=== PATIENT | female | born 1980 | race Caucasian/White ===

== ENCOUNTER 2016-08-20 21:59 | Inpatient (IN) | payer OTHER ==
[2016-08-20 22:43] LABS: ROM Internal QC QC Line Present
[2016-08-20] MEDS ORDERED: diPHENhydraMINE PO* 25 MG PO ONE (23:17)
[2016-08-21] MEDS ORDERED: OBEPIDURAL* 250 ML ONE (14:46)
[2016-08-21 14:47] LABS: Hematocrit 33 % (35-47); Hemoglobin 10.4 g/dl (12.0-16.0); Mean Corpuscular HGB Conc 32 g/dl (31-36); Mean Corpuscular Hemoglobin 24 pg (27-31); Mean Corpuscular Volume 76 fL (80-97); Mean Platelet Volume 9 um3 (7.4-10.4); Red Blood Count 4.29 10^6/ul (4.0-5.4); Red Cell Distribution Width 16 % (10.5-15); White Blood Count 21.7 10^3/ul (3.5-10.8)
[2016-08-21] MEDS ORDERED: Oxytocin in LR* 20 UNITS/1,000 ML BAG IVPB SCH (15:00)
[2016-08-21] MEDS ORDERED: Famotidine TAB* 20 MG PO PRN (15:07)
[2016-08-21] MEDS ORDERED: Phenylephrine IV* 40 MCG/ML 10 ML SYRINGE IV PUSH PRN ×8 (15:07→23:14)
[2016-08-21] MEDS ORDERED: Sodium Citrate/Citric Acid* 15 ML UDC PO PRN (15:07)
[2016-08-21] MEDS ORDERED: OBEPIDURAL* 250 ML EPIDURAL SCH ×3 (16:00→23:45)
[2016-08-21] MEDS ORDERED: fentaNYL* 50 MCG/ML 2 ML VIAL (100 MCG VIAL) ONE ×2 (20:20→22:37)
[2016-08-21] MEDS ORDERED: EPHEDrine (Pressors)* 50 MG/ML VIAL IV PUSH PRN ×4 (20:57→23:14)
[2016-08-21] MEDS ORDERED: Hetastarch in NS* 200 ML IV PRN (20:57)
[2016-08-21] MEDS ORDERED: fentaNYL* 50 MCG/ML 2 ML VIAL (100 MCG VIAL) EPIDURAL ONE (23:12)
[2016-08-22] MEDS ORDERED: Dibucaine 1% 28.35 GM TUBE PR PRN (02:10)
[2016-08-22] MEDS ORDERED: Acetaminophen TAB* 325 MG PO PRN (02:10)
[2016-08-22] MEDS ORDERED: Witch Hazel PAD* JAR TOPICAL PRN (02:10)
[2016-08-22] MEDS ORDERED: Glycerin ADULT SUPP PR PRN (02:10)
[2016-08-22] MEDS ORDERED: oxyCODONE/Acetamin 5/325 MG* TAB PO PRN (02:10)
[2016-08-22] MEDS ORDERED: Oxytocin in LR* 20 UNITS/1,000 ML BAG IVPB SCH (03:00)
[2016-08-22] MEDS: Ibuprofen TAB* 600 MG PO PRN ×3 (04:24→20:01)
[2016-08-22] MEDS ORDERED: Simethicone CHEW TAB* 80 MG PO SCH (08:30)
[2016-08-22] MEDS: Docusate CAP* 100 MG PO SCH ×3 (08:50→20:01)
[2016-08-23 07:13] LABS: Hematocrit 29 % (35-47); Mean Corpuscular HGB Conc 32 g/dl (31-36); Mean Corpuscular Hemoglobin 24 pg (27-31); Mean Corpuscular Volume 77 fL (80-97); Mean Platelet Volume 8 um3 (7.4-10.4); Red Cell Distribution Width 16 % (10.5-15); White Blood Count 17.8 10^3/ul (3.5-10.8)
[2016-08-23] MEDS: Ferrous Gluconate TAB* 324 MG TAB PO SCH ×2 (07:40→20:32)
[2016-08-23] MEDS: Docusate CAP* 100 MG PO SCH ×3 (07:40→20:32)
[2016-08-23] MEDS: Ibuprofen TAB* 600 MG PO PRN ×3 (07:40→20:32)
[2016-08-23 20:39] VITALS: BP 104/50
[2016-08-24] MEDS: Ibuprofen TAB* 600 MG PO PRN (07:37)
--- NOTE | 2016-08-24 08:32 | PTEDU ---
Patient Name: MUNDO PRAKASH MUNDO PRAKASH selected video: BBOB: Nurturing Your Gorgeous \T\Growing Baby by t o view on 08/24/2016 at 8:30:46 AM [id number]
[2016-08-24] MEDS: Ferrous Gluconate TAB* 324 MG TAB PO SCH (09:05)
[2016-08-24] MEDS: Docusate CAP* 100 MG PO SCH (09:05)
== END 2016-08-24 11:13 | disposition home or self-care (01) | DRG 775 ==
LOC: MCHOBOUT 21:59 → MCHOB 23:15
PROVIDERS: ADMIT Midwife; ATTEND Midwife
PROC: 10E0XZZ Delivery of Products of Conception, External Approach (ICD-10-PCS; principal; 2016-08-22)
PROC: 4A1H7CZ Monitoring of Products of Conception, Cardiac Rate, Via Natural or Artificial Opening (ICD-10-PCS; 2016-08-22)
PROC: 0HQ9XZZ Repair Perineum Skin, External Approach (ICD-10-PCS; 2016-08-22)
DX: O48.0 Post-term pregnancy (principal); D64.9 Anemia, unspecified; O70.0 First degree perineal laceration during delivery; O77.0 Labor and delivery complicated by meconium in amniotic fluid; O69.81X0 Labor and delivery complicated by cord around neck, without compression, not applicable or unspecified; O90.81 Anemia of the puerperium; Z3A.41 41 weeks gestation of pregnancy; Z37.0 Single live birth
CPT/HCPCS: 36415; 84112; 85025; 85027; 86850; 86900; 86901; A9270-GY; J3010

== ENCOUNTER 2018-08-05 16:56 | Emergency (ER) | payer OTHER ==
[2018-08-05 17:26] LABS: Influenza A Molecular POSITIVE (Negative)
[2018-08-05] MEDS ORDERED: Ibuprofen TAB* 600 MG PO ONE (17:39)
--- NOTE | 2018-08-05 17:58 | ED ---
Influenza-Like Illness - HPI Summary HPI Summary: 37-year-old female presents with flulike illness for the past 4 days. She states she seemed to get better and then got worse. daughter was dx with flu 4 days ago. She states worsening cough. She states cough is productive. she denies any shortness breath or chest pain. No vomiting. She admits to sore throat and sinus congestion. she also admits to headache. She has been taking ibuprofen for her symptoms. Has no medical conditions. - History of Current Complaint Chief Complaint: EDFluSymptoms Time Seen by Provider: 08/05/18 17:24 - Allergy/Home Medications Allergies/Adverse Reactions: Allergies Allergy/AdvReac Type Severity Reaction Status Date / Time No Known Allergies Allergy Verified 08/05/18 17:10 PMH/Surg Hx/FS Hx/Imm Hx Endocrine/Hematology History: Denies: Hx Anticoagulant Therapy Respiratory History: Denies: Hx Asthma Psychiatric History: Reports: Hx Anxiety Infectious Disease History: No Infectious Disease History: Denies: Traveled Outside the [place] in Last 30 Days - Family History Known Family History: Positive: Non-Contributory - Social History Alcohol Use: None Substance Use Type: Reports: None Smoking Status (MU): Never Smoked Tobacco Review of Systems Positive: Fever Negative: Chest Pain Positive: Cough. Negative: Shortness Of Breath Negative: Abdominal Pain All Other Systems Reviewed And Are Negative: Yes Physical Exam Triage Information Reviewed: Yes Vital Signs On Initial Exam: Initial Vitals Temp Pulse Resp BP Pulse Ox 99.9 F 84 15 127/92 100 08/05/18 17:08 08/05/18 17:08 08/05/18 17:08 08/05/18 17:08 08/05/18 17:08 Vital Signs Reviewed: Yes Appearance: Positive: Well-Appearing Skin: Positive: Warm, Dry Head/Face: Positive: Normal Head/Face Inspection Eyes: Positive: Normal, EOMI, SERG, Conjunctiva Clear ENT: Positive: Normal ENT inspection, Pharynx normal, TMs normal Respiratory/Lung Sounds: Positive: Clear to Auscultation, Breath Sounds Present Cardiovascular: Positive: Normal, RRR Abdomen Description: Positive: Nontender, Soft Bowel Sounds: Positive: Present Musculoskeletal: Positive: Normal Neurological: Positive: Normal Psychiatric: Positive: Normal Diagnostics - Vital Signs Vital Signs Temp Pulse Resp BP Pulse Ox 08/05/18 17:08 99.9 F 84 15 127/92 100 - Laboratory Lab Results: Lab Results 08/05/18 Range/Units 17:21 Influenza A (Rapid) Positive A (Negative) Lab Statement: Any lab studies that have been ordered have been reviewed, and results considered in the medical decision making process. - Radiology chest Radiology Interpretation Completed By: Radiologist Summary of Radiographic Findings: IMPRESSION: No active cardiopulmonary disease is noted. Flu Symptom Course/Dx - Course Course Of Treatment: 37-year-old female presents with flulike illness for the past 4 days. She states she seemed to get better and then got worse. daughter was dx with flu 4 days ago. She states worsening cough. She states cough is productive. she denies any shortness breath or chest pain. No vomiting. She admits to sore throat and sinus congestion. she also admits to headache. She has been taking ibuprofen for her symptoms. Has no medical conditions. On exam lungs clear to auscultation. Pharynx normal. Abdomen soft nontender. Chest x-ray normal. flu A positive. will treat supportively. Patient understands and agrees with plan. - Diagnoses Differential Diagnosis/HQI/PQRI: Positive: Bronchitis, Influenza, Pneumonia Provider Diagnoses: Influenza Discharge - Sign-Out/Discharge Documenting (check all that apply): Patient Departure Patient Received Moderate/Deep Sedation with Procedure: No - Discharge Plan Condition: Good Disposition: HOME Patient Education Materials: Influenza (ED) Referrals: Candis Goodman MD [Primary Care Provider] - Additional Instructions: Take Tylenol and ibuprofen for muscle aches and fever every 6 hours Saline rinse can be used multiple times a day for nasal congestion Drink plenty of fluids Return to ED if develop any new or worsening symptoms - Billing Disposition and Condition Condition: GOOD Disposition: Home
[2018-08-05 18:13] VITALS: BP 129/72
== END 2018-08-05 18:12 | disposition home or self-care (01) ==
LOC: ED 16:56
DX: J10.1 Influenza due to other identified influenza virus with other respiratory manifestations (principal)
CPT/HCPCS: 71046; 99282; A9270-GY